=== PATIENT | female | born 1945 | race Caucasian/White ===

== ENCOUNTER 2016-12-09 16:17 | Emergency (ER) | payer MEDICARE ==
--- NOTE | ~2016-12-09 | CR72 ---
[facility] A Service of [facility] RADIOLOGY TEXT RESULTS PATIENT: [address] LOCATION: [facility] : 47 UNIT #: [id number] AGE: [address]: Frederick Lehman MD SEX: F ORDER DR: [id number] [facility] [address] [place], [place] [address] [id number] E MR#: [id number] Acc #: [id number] NAME: [address]. : 1945 SEX: F STUDY DATE/TIME: 12/09/2016 16:40 UNIT: [facility] ROOM: STUDY DESCRIPTION: CR Chest Single View Portable Attending Physician: Frederick Lehman M.D. Ordering Physician: [facility] Primary Care Physician: Generic Doctor Not In System MEDICAL IMAGING REPORT This report is preliminary unless electronic signature is present EXAM Portable chest x-ray HISTORY Hypoglycemia, altered mental status. Dizzy, began today. Prior left breast biopsy. FINDINGS AP radiograph of the h of the chest is presented. COMPARISON: 11/16/16 Heart upper limits of normal in size to borderline enlarged. The heart appears less prominent than on prior study. The lungs are well inflated. Linear scarring or atelectasis in the left retrocardiac region. The lungs are otherwise clear without evidence of acute infectious or inflammatory disease. No pleural effusion or pneumothorax and no suspicious nodule. Calcified right hilar lymph nodes unchanged. Bony structures show no acute abnormality. Dictated by... Hermes Fay M.D. THIS IS AN ELECTRONICALLY VERIFIED REPORT Hermes Fay M.D. at 12/10/2016 4:25 PM PARDEEP/franc TD: 12/10/2016 08:07 JOB #: [id number] MEDICAL IMAGING REPORT [facility] A Service of [facility] RADIOLOGY TEXT RESULTS PATIENT: [address] LOCATION: [facility] : 47 UNIT #: [id number] AGE: [address]: Frederick Lehman MD SEX: F ORDER DR: COPY
[~2016-12-09 16:17] MED LIST: AMLODIPINE BESY10 MG PO; ASPIRIN81 M2 PO; BENZONATATE PO; CILOXAN5 ML OP; HUMALOG MI100 UNIT/5 SUBQ; HUMULIN 70/30 V10 ML SUBQ; LEVAQUIN PO; LIPITOR40 MG PO; LOSARTAN-HCTZ1 EACH PO; MELOXICAM15 MG PO; OMEPRAZOLE20 M2 PO; PAXIL PO; PLAVIX PO; PRAVACHOL PO; PROMETHAZINE D118 ML PO; SIMVASTATIN10 MG PO; TAMIFLU75 M1 PO; TOPROL XL50 MG PO; VASOTEC PO; VASOTEC10 MG PO; VICODIN 5/500 T1 TAB PO; ZITHROMAX PO
[2016-12-09 17:02] LABS: URINE SOURCE CLEAN CATCH
[2016-12-09 17:10] LABS: URINE APPEARANCE CLEAR; URINE BILIRUBIN NEG (NEG); URINE BLOOD NEG (NEG); URINE COLOR YELLOW; URINE GLUCOSE NEG (NEG); URINE KETONE NEG (NEG); URINE LEUKOCYTE ESTERASE NEG (NEG); URINE NITRATE NEG (NEG); URINE PH 5.5 (5-8); URINE PROTEIN NEG (NEG); URINE SPECIFIC GRAVITY 1.016 (1.003-1.035); URINE UROBILINOGEN 0.2 MG/DL (NEG)
[2016-12-09 17:20] LABS: CULTURE INDICATED? NO
[2016-12-09 18:02] LABS: BASOPHIL# 0.1 X10e3 (0-0.3); BASOPHIL% 0.6 % (0-2.5); EOSINOPHIL% 0.3 % (0.0-7.0); HEMATOCRIT 36.7 % (35.0-45.0); LYMPHOCYTE# 1.6 X10e3 (1.0-3.5); LYMPHOCYTE% 15.9 % (17.0-45.0); MEAN CELL VOLUME 76.1 FL (83-96); MEAN CORPUSCULAR HEMOGLOBIN 22.8 PG (28-34); MEAN PLATELET VOLUME 9.3 FL (6.5-11.5); MONOCYTE# 0.9 X10e3 (0-1.0); MONOCYTE% 8.6 % (3.0-12.0); NEUTROPHIL# 7.6 X10e3 (1.5-7.1); NEUTROPHIL% 74.6 % (40-75); PLATELET COUNT 252 X10e3 (140-420); RED BLOOD COUNT 4.82 X10e (3.90-5.30); RED CELL DISTRIBUTION WIDTH 15.9 % (11.0-15.5); WHITE BLOOD COUNT 10.2 X10e3 (4.0-10.5)
[2016-12-09 18:03] LABS: DIFF IND NO
[2016-12-09 18:10] LABS: ALBUMIN SERUM 4.3 g/dL (3.5-5.0); BILIRUBIN, DIRECT 0.1 mg/dL (0.0-0.2); BILIRUBIN,INDIRECT 0.4 mg/dL (0.0-0.9); BILIRUBIN,TOTAL 0.5 mg/dL (0.2-2.0); BUN/CREATININE RATIO 31.66; CALCIUM SERUM 9.4 mg/dL (8.4-10.2); CREATININE SERUM 1.2 mg/dL (0.6-1.4); GLOM FILT RATE Estimated 47.2 mL/min (>60); POTASSIUM 5.3 mmol/L (3.5-5.1); PROTEIN TOTAL SERUM 7.6 g/dL (6.0-8.3)
== END 2016-12-09 19:20 | disposition home or self-care (01) ==
LOC: CED 16:17
PROVIDERS: Emergency Medicine
DX: E11.649 Type 2 diabetes mellitus with hypoglycemia without coma (principal); I10 Essential (primary) hypertension
CPT/HCPCS: 36415; 71010; 80048; 80076; 81003; 82947; 85025; 99284